=== PATIENT | female | born 1995 | race Caucasian/White ===

== ENCOUNTER 2018-05-06 13:13 | Emergency (ER) | payer OTHER ==
[2018-05-06] MEDS ORDERED: SODIUM CHLORIDE 0.9% 1,000 ML IV STA (13:25)
--- NOTE | 2018-05-06 13:30 | ED ---
Female Urogenital HPI - General Chief complaint: Vaginal Bleeding Stated complaint: FEMALE Time Seen by Provider: 05/06/18 13:17 Source: patient, EMS, RN notes reviewed Mode of arrival: EMS Limitations: no limitations - History of Present Illness Initial comments: This is a 23-year-old female who presents to the emergency department with chief complaint of vaginal bleeding. Patient states that when she woke up this morning at 8 AM she noticed some light spotting and then developed heavy vaginal bleeding. Patient also reports lower abdominal pain that she describes as feeling like contractions. Patient states that her last menstrual period was last month and she is due to start her period in 3 days. She states that she was diagnosed with a left ovarian cyst measuring approximately 4 cm in size this past August. Patient states that her [employer]MENT [employer] is in [place]. Patient also reports feeling nauseous and having a couple episodes of vomiting this morning. She states that she did feel dizzy earlier today but that this has dissipated. She does state that she feels "green and weak." Patient denies any concerns for STDs. She states that she has been with the same sexual partner for the past 10 years and they have 2 children together. She denies any fevers or chills, chest pain or shortness of breath, diarrhea or constipation, dysuria or hematuria. Patient states there is a possibility she could be as she recently had unprotected sexual intercourse. - Related Data Home Medications Medication Instructions Recorded Confirmed Hydrocodone/Acetaminophen [Lortab 1 each PO Q6HR PRN 04/17/15 04/17/15 7.5-325 mg Tablet] LORazepam [Ativan] 0.5 mg PO HS 04/17/15 04/17/15 Previous Rx's Medication Instructions Recorded Acetaminophen [Tylenol] 500 mg PO Q4-6H PRN #30 tab 04/17/15 traMADol HCL [Ultram] 50 mg PO Q6HR PRN #8 tab 04/17/15 Allergies Allergy/AdvReac Type Severity Reaction Status Date / Time ibuprofen [From Motrin] Allergy Rash/Hives Verified 04/17/15 13:28 Review of Systems ROS Statement: Those systems with pertinent positive or pertinent negative responses have been documented in the HPI. ROS Other: All systems not noted in ROS Statement are negative. Past Medical History Past Medical History: Fibromyalgia History of Any Multi-Drug Resistant Organisms: None Reported Past Surgical History: No Surgical Hx Reported Past Psychological History: Anxiety Smoking Status: Former smoker Past Alcohol Use History: None Reported Past Drug Use History: Marijuana General Exam - General Exam Comments Initial Comments: General: Awake and alert, well-developed; in no apparent distress. HEENT: Head atraumatic, normocephalic. Pupils are equal, round and reactive to light. Extraocular movements intact. Oropharynx moist without erythema or exudate. Neck: Supple. Normal ROM. Cardiovascular: Regular rate and rhythm. No murmurs, rubs or gallops. Chest symmetrical. Respiratory: Lungs clear to auscultation bilaterally. No wheezes, rales or rhonchi. Normal respiratory effort with no use of accessory muscles. Abdomen: Soft, non-distended. Tenderness on palpation of the left pelvic region with guarding. No rigidity or rebound. Normal bowel sounds in all 4 quadrants. Musculoskeletal: Normal ROM, no tenderness bilateral upper and lower extremities. Ambulating normally. Skin: [place], warm and dry without rashes or lesions. Neurological: Alert and oriented x3. CN II-XII grossly intact. Speech is fluent and answers are appropriate. No focal neuro deficits. Psychiatric: Normal mood and affect. No overt signs of depression or anxiety noted. Limitations: no limitations External exam: Present: normal external exam. Absent: erythema, swelling Speculum exam: Present: vaginal bleeding, other (cervical lesion left lower region. painful pelvic exam for patient). Absent: erythema, cervical discharge Course Vital Signs 05/06/18 13:22 Temperature 98.1 F Pulse Rate 80 Respiratory 18 Rate Blood Pressure 115/55 O2 Sat by Pulse 100 Oximetry Medical Decision Making - Medical Decision Making This is a 23-year-old female who presents to the emergency department with chief complaint of vaginal bleeding. Patient reports vaginal bleeding that started at 8 AM this morning and lower abdominal cramping that feels like contractions. Patient's hemoglobin is decreased at 10.1. UA revealed large blood and red blood cells. Urine hCG was detected. CMP is unremarkable. Serum hCG is 9735.4. Patient's blood type is O+ so Rhogam is not warranted at this time. Pelvic examination did reveal blood and clots within the vaginal vault and a cervical lesion was identified. This was discussed with attending physician, Dr. Galeana who also evaluated the patient. An ultrasound of the pelvis was obtained which revealed endometrial thickening and evidence for a possible spontaneous . Patient's vital signs are stable and she is in no acute distress. Recommended following up with her [employer] first thing tomorrow morning. Patient is going to need repeat serum hCG and pelvic examinations. She will likely need a cervical biopsy. Patient is in agreement with this. She will be discharged home at this time. All questions were answered. - Lab Data Result diagrams: 05/06/18 13:31 05/06/18 13:31 Lab Results 05/06/18 05/06/18 05/06/18 Range/Units 13:31 13:31 13:31 WBC 14.8 H (3.8-10.6) k/uL RBC 3.52 L (3.80-5.40) m/uL Hgb 10.5 L (11.4-16.0) gm/dL Hct 31.9 L (34.0-46.0) % MCV 90.6 (80.0-100.0) fL MCH 29.7 (25.0-35.0) pg MCHC 32.8 (31.0-37.0) g/dL RDW 11.9 (11.5-15.5) % Plt Count 222 (150-450) k/uL Neutrophils % 90 % Lymphocytes % 5 % Monocytes % 3 % Eosinophils % 0 % Basophils % 0 % Neutrophils # 13.4 H (1.3-7.7) k/uL Lymphocytes # 0.8 L (1.0-4.8) k/uL Monocytes # 0.5 (0-1.0) k/uL Eosinophils # 0.1 (0-0.7) k/uL Basophils # 0.0 (0-0.2) k/uL Sodium 137 (137-145) mmol/L Potassium 4.6 (3.5-5.1) mmol/L Chloride 106 (98-107) mmol/L Carbon Dioxide 24 (22-30) mmol/L Anion Gap 7 mmol/L BUN 8 (7-17) mg/dL Creatinine 0.58 (0.52-1.04) mg/dL Est GFR (CKD-EPI)AfAm >90 (>60 ml/min/1.73 sqM) Est GFR (CKD-EPI)NonAf >90 (>60 ml/min/1.73 sqM) Glucose 91 (74-99) mg/dL Calcium 8.8 (8.4-10.2) mg/dL Total Bilirubin 0.3 (0.2-1.3) mg/dL AST 27 (14-36) U/L ALT 39 (9-52) U/L Alkaline Phosphatase 44 (38-126) U/L Total Protein 6.0 L (6.3-8.2) g/dL Albumin 3.6 (3.5-5.0) g/dL HCG, Quant 9735.4 mIU/mL Urine Color Urine Appearance (Clear) Urine pH (5.0-8.0) Ur Specific [place] (1.001-1.035) Urine Protein (Negative) Urine Glucose (UA) (Negative) Urine Ketones (Negative) Urine Blood (Negative) Urine Nitrite (Negative) Urine Bilirubin (Negative) Urine Urobilinogen (<2.0) mg/dL Ur Leukocyte Esterase (Negative) Urine RBC (0-5) /hpf Urine WBC (0-5) /hpf Ur Squamous Epith Cells (0-4) /hpf Urine Mucus (None) /hpf Urine HCG, Qual (Not Detectd) Blood Type Blood Type Recheck 05/06/18 05/06/18 05/06/18 Range/Units 13:31 14:20 14:20 WBC (3.8-10.6) k/uL RBC (3.80-5.40) m/uL Hgb (11.4-16.0) gm/dL Hct (34.0-46.0) % MCV (80.0-100.0) fL MCH (25.0-35.0) pg MCHC (31.0-37.0) g/dL RDW (11.5-15.5) % Plt Count (150-450) k/uL Neutrophils % % Lymphocytes % % Monocytes % % Eosinophils % % Basophils % % Neutrophils # (1.3-7.7) k/uL Lymphocytes # (1.0-4.8) k/uL Monocytes # (0-1.0) k/uL Eosinophils # (0-0.7) k/uL Basophils # (0-0.2) k/uL Sodium (137-145) mmol/L Potassium (3.5-5.1) mmol/L Chloride (98-107) mmol/L Carbon Dioxide (22-30) mmol/L Anion Gap mmol/L BUN (7-17) mg/dL Creatinine (0.52-1.04) mg/dL Est GFR (CKD-EPI)AfAm (>60 ml/min/1.73 sqM) Est GFR (CKD-EPI)NonAf (>60 ml/min/1.73 sqM) Glucose (74-99) mg/dL Calcium (8.4-10.2) mg/dL Total Bilirubin (0.2-1.3) mg/dL AST (14-36) U/L ALT (9-52) U/L Alkaline Phosphatase (38-126) U/L Total Protein (6.3-8.2) g/dL Albumin (3.5-5.0) g/dL HCG, Quant mIU/mL Urine Color Light [place] Urine Appearance Cloudy H (Clear) Urine pH 8.5 H (5.0-8.0) Ur Specific [place] 1.018 (1.001-1.035) Urine Protein 1+ H (Negative) Urine Glucose (UA) Negative (Negative) Urine Ketones Negative (Negative) Urine Blood Large H (Negative) Urine Nitrite Negative (Negative) Urine Bilirubin Negative (Negative) Urine Urobilinogen <2.0 (<2.0) mg/dL Ur Leukocyte Esterase Trace H (Negative) Urine RBC >182 H (0-5) /hpf Urine WBC 1 (0-5) /hpf Ur Squamous Epith Cells 1 (0-4) /hpf Urine Mucus Occasional H (None) /hpf Urine HCG, Qual Detected (Not Detectd) Blood Type O Positive Blood Type Recheck No - Radiology Data Radiology results: report reviewed Transvaginal ultrasound impression: The endometrium along the lower uterine segment heterogenous and there is a debris-filled fluid collection measuring 1.4 cm within the endocervical canal. Findings could represent impending menstruation. Correlate with beta hCG to exclude the possibility of in progress. Short interval follow-up pelvic ultrasound can be performed to assess for clearance of these findings. 2. No sonographic evidence for ovarian torsion. Disposition Clinical Impression: Cervical lesion, Spontaneous Disposition: HOME SELF-CARE Condition: Good Instructions: Miscarriage (ED) Additional Instructions: Please follow up with [employer] first thing in the morning. As discussed, please address the cervical lesion found on pelvic examination. Please have serum hCG repeated. Current level here in the emergency department was 9735.4. Please follow up with primary care provider within 1-2 days. Return to emergency department if symptoms should worsen or any concerns arise. Is patient prescribed a controlled substance at d/c from ED?: No Referrals: Susy Langford MD [Primary Care Provider] - 1-2 days Time of Disposition: 16:26
[2018-05-06 13:46] LABS: Basophils % (A) 0 %; Eosinophils # (A) 0.1 k/uL (0-0.7); Eosinophils % (A) 0 %; HCT 31.9 % (34.0-46.0); HGB 10.5 gm/dL (11.4-16.0); Lymphocytes # (A) 0.8 k/uL (1.0-4.8); Lymphocytes % (A) 5 %; MCH 29.7 pg (25.0-35.0); MCHC 32.8 g/dL (31.0-37.0); MCV 90.6 fL (80.0-100.0); Mean Platelet Volume 7.1; Monocytes # (A) 0.5 k/uL (0-1.0); Monocytes % (A) 3 %; Neutrophils # (A) 13.4 k/uL (1.3-7.7); Neutrophils % (A) 90 %; Platelet Count 222 k/uL (150-450); RBC 3.52 m/uL (3.80-5.40); RDW 11.9 % (11.5-15.5); WBC 14.8 k/uL (3.8-10.6)
[2018-05-06 13:55] LABS: ALT 39 U/L (9-52); AST 27 U/L (14-36); Albumin 3.6 g/dL (3.5-5.0); Alkaline Phosphatase 44 U/L (38-126); Anion Gap 7 mmol/L; Blood Urea Nitrogen 8 mg/dL (7-17); Calcium 8.8 mg/dL (8.4-10.2); Carbon Dioxide 24 mmol/L (22-30); Chloride 106 mmol/L (98-107); Glucose 91 mg/dL (74-99); Potassium 4.6 mmol/L (3.5-5.1); Sodium 137 mmol/L (137-145); Total Bilirubin 0.3 mg/dL (0.2-1.3)
[2018-05-06 14:40] LABS: Appearance,Urine Cloudy (Clear); Bilirubin,Urine Negative (Negative); Blood,Urine Large (Negative); Color,Urine Light Orange; Glucose,Urine (UA) Negative (Negative); Ketones,Urine Negative (Negative); Leukocyte Esterase,Urine Trace (Negative); Mucus,Urine Occasional /hpf; Nitrite,Urine Negative (Negative); PH, Urine 8.5 (5.0-8.0); Protein,Urine 1+ (Negative); RBC,Urine >182 /hpf (0-5); Specific Gravity,Urine 1.018 (1.001-1.035); Squamous Epithelial Cell,Urine 1 /hpf (0-4); Urobilinogen,Urine <2.0 mg/dL (<2.0); WBC,Urine 1 /hpf (0-5)
--- NOTE | 2018-05-06 15:15 | US ---
EXAMINATION TYPE: US transvaginal plus Dopplers DATE OF EXAM: 05/06/2018 COMPARISON: NONE CLINICAL HISTORY: 23-year-old female Heavy bleeding and cramping TECHNIQUE: Transvaginal. Color Doppler spectral waveform analysis of the ovarian arteries and veins. Date of LMP: Pt had menses last month 04/07/18. She states that she did have regular menses for 3 surendra hs during last FINDINGS: EXAM MEASUREMENTS: Uterus: 11.5 x 5.3 x 6.7 cm Endometrial Stripe: 13.0 cm Right Ovary: 2.5 X 1.9 X 2.0 cm Left Ovary: 2.2 X 1.7 X 1.5 cm 1. Uterus: Anteverted 2. Endometrium: Thickening near the upper limits of normal. The endometrium is heterogeneous along t he lower uterine segment and within the endocervical canal is a debris-filled fluid collection measur ing 1.4 x 0.6 x1.4 cm Manager Business notes: HCG came back as detected, no current numbers. 3. Right Ovary: wnl. Follicular change. Satisfactory arterial and venous flow. 4. Left Ovary: wnl. Follicular change. Satisfactory arterial and superimposed venous flow. 5. Bilateral Adnexa: wnl 6. Posterior cul-de-sac: wnl IMPRESSION: 1. The endometrium along the lower uterine segment is heterogeneous and there is a debris-filled flui d collection measuring 1.4 cm within the endocervical canal. Findings could represent impending menst ruation. Correlate with beta hCG to exclude the possibility of in progress. Short interval f ollow-up pelvic ultrasound can be performed to assess for clearance of these findings. 2. No sonographic evidence for ovarian torsion.
[2018-05-06 16:45] VITALS: BP 122/56; PULSE 80; RESP 18; TEMP 98.6
== END 2018-05-06 16:45 | disposition home or self-care (01) ==
LOC: EC 13:13 → SUPCPDRO 13:13 → EC 16:45
DX: O03.9 Complete or unspecified spontaneous abortion without complication (principal); O99.719 Diseases of the skin and subcutaneous tissue complicating pregnancy, unspecified trimester; L98.9 Disorder of the skin and subcutaneous tissue, unspecified; O99.340 Other mental disorders complicating pregnancy, unspecified trimester; F41.9 Anxiety disorder, unspecified; Z87.891 Personal history of nicotine dependence; Z79.899 Other long term (current) drug therapy; Z88.6 Allergy status to analgesic agent; Z3A.00 Weeks of gestation of pregnancy not specified
CPT/HCPCS: 36415; 76830; 80053; 81001; 81025; 84702; 85025; 86900; 86901; 93975; 96360; 99285